=== PATIENT | male | born 1955 | race Caucasian/White ===

== ENCOUNTER 2019-07-11 09:00 | Outpatient (RCR) | payer MEDICARE, OTHER, SELFPAY ==
--- NOTE | 2019-06-13 11:20 | PTOPEVAL ---
INITIAL PHYSICAL THERAPY EVALUATION and PLAN OF CARE Thank you for referring Chuck Garcia to [facility]. He will be seen in PT 2x/wk x 4 wks. Please review, sign, date and return this plan of care KIRTI. I agree with and certify that the following plan of care is medically necessary. Referring Physician Date Admitting Provider: Attending Provider: Kris Maher, Referring Provider: *PT Outpatient Evaluation Start: 06/13/19 09:39 Freq: Status: Active Protocol: Document 06/13/19 09:30 WINSTON (Rec: 06/13/19 10:57 WINSTON [email or web address]) Therapy Assessment Status Assessment Status Assessment Status Evaluation Outpatient Past Medical History Past Medical History Source of Past Medical History Patient Neurological History Hx Neurological Disorders No Significant History Cardiovascular History Hx Cardiac Catheterization Yes: 5 stents Hx Hypercholesterolemia Yes Hx Hypertension Yes Respiratory History Hx Respiratory Disorders No Significant History Gastrointestinal History Hx Gastrointestinal Disorders No Significant History Genitourinary History Hx Genitourinary Disorders No Significant History Musculoskeletal History Hx Back Pain Yes: upper back/neck/L shoulder Hx Orthopedic Surgery Yes: L ankle fusion,L hallux bone spur Endocrine History Hx Diabetes Yes: LE diabetic neuropathy Evaluation Information Problem Diagnosis deg of cervical intervertebral disc, chronic neck & L shoulder pain Onset long standing - worsened - L scapular/arm pain more recent Additional Evaluation Detail was on a muscular relaxer - did help - no longer taking Subjective Information Long standing neck pain - L Query Text:As Reported By Patient/ leg is slightly shorter - lift Family was placed in L shoe - did not make too much difference in regards to neck pain. Then he reported pain went down into L scapular region - and pain traveled down dorsal aspect of arm into hand region Sleeping - takes awhile to get comfortable, once he get comfortable able to sleep well . Mornings - not bad - a little stiffness Will notice discomfort more as day goes on, after riding stationary
--- NOTE | 2019-07-11 14:59 | PTOPEVAL ---
PHYSICAL THERAPY DISCHARGE SUMMARY Thank you for referring Chuck Garcia to [facility]. He was seen in PT x 9 visits. Goals have been met. He is independent and compliant with HEP. I agree with Shreyas's discharge from PT. Referring Physician Date Admitting Provider: Attending Provider: Kris Maher, MD Referring Provider: *PT Outpatient Evaluation Start: 06/13/19 09:39 Freq: Status: Active Protocol: Document 07/11/19 09:05 WINSTON (Rec: 07/11/19 14:59 WINSTON [email or web address]) Therapy Assessment Status Assessment Status Assessment Status Discharge Evaluation Information Problem Subjective Information Shreyas reports being busy with Query Text:As Reported By Patient/ garden activities with his Family last few days. Fatigue and soreness from activity but no increase with neck pain. Occasional L mid arm symptoms - but not very often Pain Assessment Timing of Pain Assessment Timing of Pain Assessment Assessment Pain Scale Pain Scale Used Numeric (1 - 10) Self Report Pain Assessment Left Upper Posterior Back Reported Pain Level 0 Lowest Pain Intensity 0 Greatest Pain Intensity 4 Pain Score Pain Score 0: Self Report Cervical and Lumbar ROM Cervical ROM Cervical Flexion (0-60) 40 Query Text:Active in Degrees Cervical Extension (0-70) 50 Query Text:Active in Degrees Cervical Lateral Flexion Right (0-50) 40 Query Text:Active in Degrees Cervical Lateral Flexion Left (0-50) 35 Query Text:Active in Degrees Cervical Rotation Right (0-90) 65 Query Text:Active in Degrees Cervical Rotation Left (0-90) 65 Query Text:Active in Degrees PT Clinical Summary Clinical Summary Protocol: PTEVCODE PT Clinical Summary Neck Disability Index - 12% initially 20% Shreyas has done well in PT. Pain levels have decreased and L UE radicular symptoms have diminished - still occasionally present. Cervical AROM has increased, increase in postural awareness , and improved ADLs, IADLs has occurred. He is independent and compliant with his HEP and has been encouraged to continue with it on a regular basis. He is ready for d/c from PT to HEP.
== END 2019-07-12 12:30 | disposition home or self-care (01) ==
LOC: ANHPT 09:00
PROVIDERS: Visit Provider Family Medicine
DX: M50.30 Other cervical disc degeneration, unspecified cervical region (principal)
CPT/HCPCS: 97110; 97140; 97161